=== PATIENT | female | born 1960 | race Caucasian/White ===

== ENCOUNTER 2017-03-01 00:49 | Day surgery (SDC) | payer OTHER ==
[~2017-03-01 00:49] MED LIST: DILT120T3 PO; LOSA25TA21 PO; MELO-259 PO; METF500T4 PO; OMEP20CA11 PO; OXYC-465 PO
[2017-03-01] MEDS ORDERED: fentaNYL-PF 50 mCg/mL 2 mL Inj IVPUSH PRN (06:00)
[2017-03-01] MEDS ORDERED: Sodium Chloride LOK Flush 10 mL Syringe IV PRN (06:00)
[2017-03-01] MEDS ORDERED: 0.9% Sodium Chloride 1,000 ML IV SCH (06:00)
== END 2017-03-01 23:59 | disposition home or self-care (01) ==
LOC: END 00:49
PROVIDERS: ATTEND Internal Medicine Gastroenterology
DX: Z12.11 Encounter for screening for malignant neoplasm of colon (principal); R13.10 Dysphagia, unspecified